=== PATIENT | female | born 1995 | race Caucasian/White ===

== ENCOUNTER 2020-02-23 19:42 | Emergency (ER) | payer MEDICAID ==
[~2020-02-23] VITALS: Ht 160 cm; Wt 64.4 kg
[2020-02-23 19:50] VITALS: BP 141/75
--- NOTE | 2020-02-23 19:50 | NUR ---
[employer] TAKEN TO CHAIR [place]
--- NOTE | 2020-02-23 19:55 | NUR ---
SEE COMPLETE ASSESSMENT FOR ADDITIONAL INFORMATION.
[2020-02-23] MEDS ORDERED: diphenhydrAMINE 50 MG/ML VIAL IM ONE (20:10)
[2020-02-23] MEDS ORDERED: LORazepam 2 MG/ML VIAL IM ONE (20:15)
--- NOTE | 2020-02-23 20:29 | NUR ---
PT UNABLE TO PROVIDE URINE AT THIS TIME.
--- NOTE | 2020-02-23 20:33 | NUR ---
LAB AT BEDSIDE.
--- NOTE | 2020-02-23 20:40 | NUR ---
BLOOD COLLECTED AND GIVEN TO LAB.
--- NOTE | 2020-02-23 20:41 | NUR ---
PT AMBUALTED TO RESTROOM WITH STEADY GAIT. HAT PLACED ON TOILET SEAT.
[2020-02-23 20:46] LABS: BASOPHILS # (AUTO) 0.1 K/uL (0.00-0.22); BASOPHILS % (AUTO) 1.3 % (0.0-2.0); EOSINOPHILS # (AUTO) 0.1 K/uL (0-0.4); EOSINOPHILS % (AUTO) 0.9 % (0.0-4.0); HEMATOCRIT 38.1 % (36-48); HEMOGLOBIN 12.7 g/dL (12.0-16.0); LYMPHOCYTES # (AUTO) 2.7 K/uL (2.5-16.5); LYMPHOCYTES % (AUTO) 28.7 % (20.5-51.1); MEAN CORPUSCULAR HEMOGLOBIN 28 pg (27-31); MEAN CORPUSCULAR HGB CONC 33 g/dL (33-37); MEAN CORPUSCULAR VOLUME 85.6 fL (80-94); MONOCYTES # (AUTO) 0.4 K/uL (0.8-1.0); MONOCYTES % (AUTO) 4.1 % (1.7-9.3); PLATELET COUNT (AUTO) 368 K/uL (140-450); RED BLOOD CELL COUNT(AUTO) 4.45 MIL/uL (4.20-5.40); RED CELL DISTRIBUTION WIDTH 13.9 % (11.6-13.7); WHITE BLOOD COUNT (AUTO) 9.3 K/uL (4.8-10.8)
[2020-02-23 20:58] LABS: ALBUMIN 4.3 g/dL (3.4-5.0); ANION GAP 16.3 (8-16); ASPARTATE AMINOTRANSFERASE 27 U/L (15-37); CARBON DIOXIDE 23.4 mmol/L (21-32); CHLORIDE 103 mmol/L (98-107); CREATININE 0.8 mg/dL (0.6-1.3); GFR ARICAN-AMERICAN 112 mL/min (>90); GLUCOSE 86 mg/dL (74-106); POTASSIUM 3.7 mmol/L (3.5-5.1); SODIUM SERUM 139 mmol/L (136-145); TOTAL BILIRUBIN 1.9 mg/dL (0.0-1.0); UREA NITROGEN, BLOOD 16 mg/dL (7-18)
[2020-02-23 21:01] LABS: BARBITURATE, URINE NEGATIVE ng/ml (NEG <=200); BENZODIAZEPINE, URINE NEGATIVE ng/mL (NEG <=200); CANNABINOID, URINE NEGATIVE ng/mL (NEG <=50); COCAINE, URINE NEGATIVE ng/mL (NEG <=300); OPIATE, URINE NEGATIVE ng/mL (NEG <=2000); PHENCYCLIDINE SCREEN,URINE NEGATIVE ng/mL (NEG <=25)
--- NOTE | 2020-02-23 21:05 | NUR ---
PT CALM AND COOPERATIVE AT THIS TIME.
[2020-02-23 21:15] VITALS: BP 138/82
--- NOTE | 2020-02-23 21:15 | NUR ---
PATIENT BIB [employer]. PATIENT EXAMINED BY . PATIENT MEDICALLY CLEARED AND RELEASED IN CUSTODY IN STABLE CONDITION. ORIGINAL PRE-BOOK FORM GIVEN TO OFFICER BANDAR #[id number].
== END 2020-02-23 21:15 ==
LOC: MED 19:42
DX: T43.621A Poisoning by amphetamines, accidental (unintentional), initial encounter (principal)
CPT/HCPCS: 36415; 80053; 80305; 84703; 85025; 96372; 99283; G0482; J2060

== ENCOUNTER 2020-07-15 13:29 | Emergency (ER) | payer MEDICAID ==
[~2020-07-15] VITALS: Ht 160 cm; Wt 61.2 kg
[2020-07-15 13:34] VITALS: BP 148/100
--- NOTE | 2020-07-15 13:50 | NUR ---
Lab at bedside drawing blood from ambulance [facility].
--- NOTE | 2020-07-15 13:55 | NUR ---
Patient assisted from ambulance [facility] onto hospital bed. All belongings removed, placed into a gown.
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
[2020-07-15 14:01] LABS: BASOPHILS # (AUTO) 0.1 K/uL (0.00-0.22); BASOPHILS % (AUTO) 1.2 % (0.0-2.0); EOSINOPHILS # (AUTO) 0.3 K/uL (0-0.4); EOSINOPHILS % (AUTO) 3.6 % (0.0-4.0); HEMATOCRIT 26.1 % (36-48); HEMOGLOBIN 8.3 g/dL (12.0-16.0); LYMPHOCYTES # (AUTO) 2.2 K/uL (2.5-16.5); LYMPHOCYTES % (AUTO) 23.6 % (20.5-51.1); MEAN CORPUSCULAR HEMOGLOBIN 25 pg (27-31); MEAN CORPUSCULAR HGB CONC 32 g/dL (33-37); MEAN CORPUSCULAR VOLUME 77.1 fL (80-94); MONOCYTES # (AUTO) 0.5 K/uL (0.8-1.0); MONOCYTES % (AUTO) 5.3 % (1.7-9.3); NEUTROPHILS # (AUTO) 6.2 K/uL (1.8-7.7); NEUTROPHILS % (AUTO) 66.3 % (42.2-75.2); PLATELET COUNT (AUTO) 555 K/uL (140-450); RED BLOOD CELL COUNT(AUTO) 3.39 MIL/uL (4.20-5.40); RED CELL DISTRIBUTION WIDTH 15.9 % (11.6-13.7); WHITE BLOOD COUNT (AUTO) 9.3 K/uL (4.8-10.8)
--- NOTE | 2020-07-15 14:27 | NUR ---
Patient states she is unable to provide urine sample at this time. Water cup provided per pt request.
--- NOTE | 2020-07-15 14:57 | NUR ---
(2) cranberry juices and water cup provided to encourage void. Patient says she will try later.
--- NOTE | 2020-07-15 15:08 | NUR ---
Patient presents awake with both eyes open. Pt states she will try to void for urine sample in 15 minutes.
--- NOTE | 2020-07-15 15:24 | NUR ---
Edmond & (2) cranberry juice provided per pt request. Pt completing meal at this time. Bed locked in lowest position, side rails x 1.
--- NOTE | 2020-07-15 15:31 | NUR ---
Dr. Johnson is evaluating patient at bedside.
--- NOTE | 2020-07-15 15:40 | NUR ---
Urine sample collected, walked to lab and handed to ladi Howe tech. Shyam advised he will only be able to complete Urine drug screen due to minimal urine amount. Will continue to encourage hydration and patient to void again.
[2020-07-15 16:03] LABS: BARBITURATE, URINE NEGATIVE ng/ml (NEG <=200); BENZODIAZEPINE, URINE NEGATIVE ng/mL (NEG <=200); CANNABINOID, URINE NEGATIVE ng/mL (NEG <=50); COCAINE, URINE NEGATIVE ng/mL (NEG <=300); OPIATE, URINE NEGATIVE ng/mL (NEG <=2000); PHENCYCLIDINE SCREEN,URINE NEGATIVE ng/mL (NEG <=25)
--- NOTE | 2020-07-15 16:36 | NUR ---
Patient resting with both eyes open in semi-fowlers position. Respirations even/unlabored; equal chest rise and fall. Bed locked in lowest position, side rails x 2.
--- NOTE | 2020-07-15 17:22 | NUR ---
Patient is sitting upright with both eyes open. Advised of dinner meal tray orders. All pt needs met at this time. Respirations even/unlabored; equal chest rise and fall. Bed locked in lowest position, side rails x 2.
[2020-07-15 17:45] LABS: APPEARANCE,URINE CLEAR (CLEAR); BILIRUBIN,URINE NEGATIVE (NEGATIVE); BLOOD, URINE NEGATIVE (NEGATIVE); COLOR,URINE YELLOW (YELLOW); LEUKOCYTE ESTERASE ,URINE 2+ (NEGATIVE); NITRITE, URINE NEGATIVE (NEGATIVE); UGLUCOSE NEGATIVE (NEGATIVE)
[2020-07-15 18:00] LABS: RBC,URINE 0-5 /HPF (0-5); WBC,URINE 16-25 (MOD) /HPF (0-5)
[2020-07-15 18:07] LABS: SODIUM SERUM 139 mmol/L (136-145)
[2020-07-15 18:08] LABS: ANION GAP 15.5 (8-16); CARBON DIOXIDE 24.4 mmol/L (21-32); CHLORIDE 103 mmol/L (98-107); GLUCOSE 84 mg/dL (74-106); POTASSIUM 3.9 mmol/L (3.5-5.1)
[2020-07-15 18:09] LABS: CREATININE 0.9 mg/dL (0.6-1.3); GFR ARICAN-AMERICAN 97 mL/min (>90); UREA NITROGEN, BLOOD 21 mg/dL (7-18)
[2020-07-15 18:10] LABS: ASPARTATE AMINOTRANSFERASE 47 U/L (15-37); SALICYLATE < 2.8 mg/dL (2.8-20.0)
[2020-07-15 18:11] LABS: TOTAL BILIRUBIN 0.8 mg/dL (0.0-1.0)
--- NOTE | 2020-07-15 19:04 | NUR ---
[place] [employer] officer Eusebio Guevara is evaluating the patient at bedside.
--- NOTE | 2020-07-15 19:18 | NUR ---
[employer] [employer] Officer Eusebio Guevara states patient does not meet criteria for 5150 hold.
--- NOTE | 2020-07-15 19:23 | NUR ---
Report and transfer of care given to KEI More.
[2020-07-15 19:38] VITALS: BP 120/81
--- NOTE | 2020-07-15 19:39 | NUR ---
Patient discharged with v/s stable. Written and verbal after care instructions given and explained. Patient verbalized understanding. Ambulatory with steady gait. All questions addressed prior to discharge. Advised to follow up with PMD.
== END 2020-07-15 19:39 | disposition home or self-care (01) ==
LOC: MED 13:29
DX: F19.10 Other psychoactive substance abuse, uncomplicated (principal); Z20.822 Contact with and (suspected) exposure to COVID-19
CPT/HCPCS: 36415; 80053; 80305; 81001; 85025; 87086; 87426; 99285; G0480; G0482; U0003; 81025; 99284

== ENCOUNTER 2021-07-20 17:33 | Emergency (ER) | payer MEDICAID ==
[~2021-07-20] VITALS: Ht 170.2 cm; Wt 74.4 kg
[2021-07-20 17:37] VITALS: BP 142/82
--- NOTE | 2021-07-20 17:37 | NUR ---
PT OPAL KOROMA, VIA GURNEY TO BED 08.
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
--- NOTE | 2021-07-20 17:56 | NUR ---
BOB Gibbs at bedside evaluating patient.
--- NOTE | 2021-07-20 18:09 | NUR ---
X-Ray at bedside.
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
[2021-07-20] MEDS ORDERED: NAPR-54 PO (19:02)
--- NOTE | 2021-07-20 19:24 | NUR ---
Pt report given to ROGER Vanegas. Transfer of care at this time.
[2021-07-20 19:38] VITALS: BP 134/57
--- NOTE | 2021-07-20 19:38 | NUR ---
Patient discharged with v/s stable. Written and verbal after care instructions given and explained. Patient alert, oriented and verbalized understanding of instructions. Ambulatory with crutches with steady gait. All questions addressed prior to discharge. ID band removed. Patient advised to follow up with PMD. Rx of naprosyn given. Opportunity to ask questions provided and answered. food, mental health packet, drug abuse help packet, homeless resource packet given upon d/c. shoes from security given.
--- NOTE | 2021-07-20 19:40 | NUR ---
The patient's care was reviewed and supervised by Malinda Russell RN.
[2021-07-20] MEDS ORDERED: TOLN108P TP (22:14)
== END 2021-07-20 19:30 | disposition home or self-care (01) ==
LOC: MED 17:33
DX: S92.511A Displaced fracture of proximal phalanx of right lesser toe(s), initial encounter for closed fracture (principal); W51.XXXA Accidental striking against or bumped into by another person, initial encounter; Y93.89 Activity, other specified; Y92.89 Other specified places as the place of occurrence of the external cause; Y99.8 Other external cause status
CPT/HCPCS: 73630; 99283

== ENCOUNTER 2021-07-20 20:52 | Emergency (ER) | payer MEDICAID ==
[~2021-07-20] VITALS: Ht 162.6 cm; Wt 74.4 kg
[~2021-07-20 20:52] MED LIST: NAPR-54 PO
[2021-07-20 21:34] VITALS: BP 132/78
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
--- NOTE | 2021-07-20 22:11 | NUR ---
Dr. Dasilva at triage to exam patient.
[2021-07-20] MEDS ORDERED: TOLN108P TP (22:14)
--- NOTE | 2021-07-20 22:34 | NUR ---
Called patient's friend/family for a ride- Patient had a bus pass from day shift.
[2021-07-20 22:50] VITALS: BP 132/78
== END 2021-07-20 22:50 | disposition home or self-care (01) ==
LOC: MED 20:52
DX: B35.3 Tinea pedis (principal); F15.10 Other stimulant abuse, uncomplicated; F17.210 Nicotine dependence, cigarettes, uncomplicated; Z59.00 Homelessness unspecified
CPT/HCPCS: 99282

== ENCOUNTER 2021-10-12 12:19 | Emergency (ER) | payer MEDICAID ==
[~2021-10-12] VITALS: Ht 172.7 cm; Wt 72.6 kg
[~2021-10-12 12:19] MED LIST changes: +TOLN108P TP
--- NOTE | 2021-10-12 12:24 | NUR ---
Patient ambulated with steady gait to bed 5.
[2021-10-12 12:33] VITALS: BP 126/83
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
--- NOTE | 2021-10-12 13:20 | NUR ---
PT SWABBED FOR COVID( [employer]). HANDED TO DESIGN TECHNICIAN
[2021-10-12 13:40] LABS: BASOPHILS # (AUTO) 0.1 K/uL (0.00-0.22); BASOPHILS % (AUTO) 0.9 % (0.0-2.0); EOSINOPHILS # (AUTO) 0.2 K/uL (0-0.4); HEMATOCRIT 27.8 % (36-48); HEMOGLOBIN 8.5 g/dL (12.0-16.0); LYMPHOCYTES # (AUTO) 2.4 K/uL (2.5-16.5); LYMPHOCYTES % (AUTO) 31.9 % (20.5-51.1); MEAN CORPUSCULAR HEMOGLOBIN 20 pg (27-31); MEAN CORPUSCULAR HGB CONC 31 g/dL (33-37); MEAN CORPUSCULAR VOLUME 65.1 fL (80-94); MONOCYTES # (AUTO) 0.3 K/uL (0.8-1.0); MONOCYTES % (AUTO) 4.3 % (1.7-9.3); NEUTROPHILS # (AUTO) 4.5 K/uL (1.8-7.7); NEUTROPHILS % (AUTO) 59.9 % (42.2-75.2); PLATELET COUNT (AUTO) 375 K/uL (140-450); RED BLOOD CELL COUNT(AUTO) 4.27 MIL/uL (4.20-5.40); RED CELL DISTRIBUTION WIDTH 20.1 % (11.6-13.7); WHITE BLOOD COUNT (AUTO) 7.5 K/uL (4.8-10.8)
[2021-10-12 13:56] LABS: APPEARANCE,URINE CLEAR (CLEAR); BILIRUBIN,URINE NEGATIVE (NEGATIVE); BLOOD, URINE NEGATIVE (NEGATIVE); COLOR,URINE YELLOW (YELLOW); LEUKOCYTE ESTERASE ,URINE TRACE (NEGATIVE); NITRITE, URINE NEGATIVE (NEGATIVE); PH,URINE 5.5 (5.0-9.0); UGLUCOSE NEGATIVE (NEGATIVE)
--- NOTE | 2021-10-12 14:13 | NUR ---
PT PROVIDED WITH FOOD AND DRINK
[2021-10-12 14:16] LABS: BARBITURATE, URINE NEGATIVE ng/ml (NEG <=200); BENZODIAZEPINE, URINE NEGATIVE ng/mL (NEG <=200); CANNABINOID, URINE NEGATIVE ng/mL (NEG <=50); COCAINE, URINE NEGATIVE ng/mL (NEG <=300); OPIATE, URINE NEGATIVE ng/mL (NEG <=2000); PHENCYCLIDINE SCREEN,URINE NEGATIVE ng/mL (NEG <=25)
[2021-10-12 14:34] LABS: CALCIUM OXALATE CRYSTALS,UR None Seen /HPF (None Seen); COARSE GRANULAR CASTS,URINE None Seen /LPF (None Seen); FINE GRANULAR CASTS,URINE None Seen /LPF (None Seen); HYALINE CASTS, URINE None Seen /LPF (None Seen); OTHER CASTS, URINE None Seen /LPF (None Seen); OTHER CRYSTALS,URINE None Seen /HPF (None Seen); RBC,URINE 0-5 /HPF (0-5); RED BLOOD CELL CASTS,URINE None Seen /LPF (None Seen); TRICHOMONAS,URINE None Seen /HPF (None Seen); TRIPLE PHOSPHATE CRYSTAL,UR None Seen /HPF (None Seen); URIC ACID CRYSTALS,URINE None Seen /HPF (None Seen); URINE AMORPHOUS URATE None Seen /HPF (None Seen); WAXY CASTS,URINE None Seen /LPF (None Seen); WBC,URINE 0-5 /HPF (0-5); YEAST,URINE None Seen /HPF (None Seen)
[2021-10-12 16:14] LABS: ALBUMIN 3.2 g/dL (3.4-5.0); ASPARTATE AMINOTRANSFERASE 18 U/L (15-37); CHLORIDE 107 mmol/L (98-107); CREATININE 0.6 mg/dL (0.6-1.3); GFR ARICAN-AMERICAN 154 mL/min (>90); GLUCOSE 121 mg/dL (74-106); SODIUM SERUM 136 mmol/L (136-145); TOTAL BILIRUBIN 0.6 mg/dL (0.0-1.0); UREA NITROGEN, BLOOD 14 mg/dL (7-18)
[2021-10-12 16:15] LABS: SALICYLATE < 2.8 mg/dL (2.8-20.0)
[2021-10-12 16:16] LABS: ACETAMINOPHEN < 0.5 ug/ml (10-30)
--- NOTE | 2021-10-12 18:50 | NUR ---
PT PROVIDED WITH DINNER. EATING IN BED
--- NOTE | 2021-10-12 19:20 | NUR ---
REPORT GIVEN TO LORIN DURAN. ALL QUESTIONS ANSWERED. TRANSFER OF CARE AT THIS TIME
--- NOTE | 2021-10-12 21:02 | NUR ---
Patient appears to be resting comfortably in bed SLEEPING. Vital Signs within normal limits. Respirations even and unlabored.
--- NOTE | 2021-10-13 02:25 | NUR ---
PT SECURITY ORDERLY WITH GAMALIEL
--- NOTE | 2021-10-13 02:51 | NUR ---
SPOKE WITH . HE RECOMMENDED DISCHARGE AND REFERALL TO SUBSTANCE ABUSE PROGRAM
--- NOTE | 2021-10-13 04:15 | NUR ---
Patient appears to be resting comfortably in bed. Vital Signs within normal limits. Respirations even and unlabored. report to that tele doc gave discharge instructions
[2021-10-13 04:56] VITALS: BP 142/82
--- NOTE | 2021-10-13 04:56 | NUR ---
Patient discharged with v/s stable. Written and verbal after care instructions given and explained. Patient verbalized understanding. Ambulatory with steady gait. All questions addressed prior to discharge. Advised to follow up with PMD. pt dc with meal and resource packet and appropraite clothes
== END 2021-10-13 04:56 | disposition home or self-care (01) ==
LOC: MED 12:19
DX: R45.851 Suicidal ideations (principal); Z20.822 Contact with and (suspected) exposure to COVID-19; Z79.899 Other long term (current) drug therapy
CPT/HCPCS: 36415; 80053; 80305; 81001; 81025; 85025; 87426; 87635; 99285; C9803; G0480; G0482

== ENCOUNTER 2022-01-25 18:10 | Emergency (ER) | payer MEDICAID ==
[~2022-01-25] VITALS: Ht 165.1 cm; Wt 59.0 kg
[2022-01-25 18:15] VITALS: BP 152/58
--- NOTE | 2022-01-25 18:24 | NUR ---
Pt bib [employer] for pre-booking. Pt is yelling, erratic, not making complete sentences, jumping from topic to topic. Patient is AOX4, answering questiosn but noted with white foam at the corners of her mouth. She denies any drug use. She states she has a concussion and headache. Pt speaking extremely fast. Officer requesting to keep the patient outside in the car due to being extrememly agitated and combative with officers on the scene. Dr. Martinez made aware and agreed to evaluate patient outside in police car.
--- NOTE | 2022-01-25 19:46 | NUR ---
Dr. Martinez examining patient.
--- NOTE | 2022-01-25 20:00 | NUR ---
Patient D/C to custody.
== END 2022-01-25 20:00 ==
LOC: MED 18:10
DX: F15.129 Other stimulant abuse with intoxication, unspecified (principal); Z72.89 Other problems related to lifestyle
CPT/HCPCS: 99283

== ENCOUNTER 2022-02-17 03:51 | Emergency (ER) | payer MEDICAID ==
[~2022-02-17] VITALS: Ht 160 cm; Wt 66.7 kg
[2022-02-17 03:58] VITALS: BP 125/80
--- NOTE | 2022-02-17 04:17 | NUR ---
PT TRIAGED AND STABLE, SENT TO [facility] A/W BED.
[2022-02-17] MEDS ORDERED: diphenhydrAMINE 50 MG CAP PO ONE (04:20)
[2022-02-17] MEDS ORDERED: risperiDONE 1 MG TAB PO STA (04:27)
[2022-02-17] MEDS ORDERED: BEN50 PO (04:59)
[2022-02-17] MEDS ORDERED: RISP0.5T3 PO (04:59)
--- NOTE | 2022-02-17 05:51 | NUR ---
ATTEMPTED TO CALL PATIENT FOR DISCHARGE WITH NO SUCCESS. PATIENT LEFT WITHOUT RECEIVING DISCHARGE PAPERS.
[2022-02-17] MEDS ORDERED: risperiDONE 1 MG TAB PO SCH (09:00)
== END 2022-02-17 05:51 | disposition home or self-care (01) ==
LOC: MED 03:51
DX: L29.9 Pruritus, unspecified (principal); T78.40XA Allergy, unspecified, initial encounter; X58.XXXA Exposure to other specified factors, initial encounter
CPT/HCPCS: 99283; Q0163

== ENCOUNTER 2022-02-24 12:51 | Emergency (ER) | payer MEDICAID ==
[~2022-02-24] VITALS: Ht 162.6 cm; Wt 60.8 kg
[~2022-02-24 12:51] MED LIST changes: +BEN50 PO; +RISP0.5T3 PO
[2022-02-24 13:03] VITALS: BP 117/57
--- NOTE | 2022-02-24 15:02 | NUR ---
Patient discharged with v/s stable. Written and verbal after care instructions ABOUT MAJOR DEPRESSIVE DISORDER given and explained. Patient verbalized understanding. Ambulatory with steady gait. All questions addressed prior to discharge. Advised to follow up with PMD. PATIENT PROVIDED WITH MENTAL HEALTH AND HOUSING RESOURCES. UBER PROVIDED TO CUSTODIAL OF CHOICE
== END 2022-02-24 15:02 | disposition home or self-care (01) ==
LOC: MED 12:51
DX: F20.9 Schizophrenia, unspecified (principal); F32.A Depression, unspecified
CPT/HCPCS: 99281